=== PATIENT | female | born 1965 ===

== ENCOUNTER 2025-04-08 09:49 | Emergency (ER) | payer OTHER, SELFPAY ==
[2025-04-08 09:56] VITALS: BP 133/73
--- NOTE | 2025-04-08 10:23 | ED.GENMED ---
History of Present Illness
General
Chief Complaint: Fall
Source: patient
Exam Limitations: none
Time Seen by Provider: 04/08/25 10:09
History of Present Illness
History of Present Illness:
See MDM
Past History
Past History
ED Past Medical History: HTN
ED Past Surgical History: Appendectomy
Social History
Tobacco: Non-smoker
Alcohol: None
Phy Exam
Physical Exam
Physical Exam:
See MDM
Course
Orders/Labs/Results
Orders:
Orders
04/08/25 10:19
Oxycodone/Acetaminophen [Percocet 5/325] 1 tablet PO NOW STA
Ribs, Left 3 View W/PA Chest CR [CR Ribs-left 3 Vw W/pa Chest] Urgent
Comment:
Reason For Exam: fall, left anterior rib pain
Vital Signs
Initial and Last Documented VS:
Initial Vital Signs
Temp Pulse Resp BP Pulse Ox
98.2 F 61 16 133/73 98
04/08/25 09:56 04/08/25 09:56 04/08/25 09:56 04/08/25 09:56 04/08/25 09:56
Last Documented Vital Signs
Temp Pulse Resp BP Pulse Ox
98.2 F 61 16 133/73 98
04/08/25 09:56 04/08/25 09:56 04/08/25 09:56 04/08/25 09:56 04/08/25 09:56
MDM/Problems Addressed
Differential Diagnosis Includes:
HPI and MDM Narrative:
60-year-old female presenting with left chest pain after a trip and fall. Patient states she tripped yesterday when she was leaning forward while fishing. She states she landed on her chest. Motrin is offering minimal relief. She complains of
left anterior chest pain along her ribs. She also complains of mid chest pain along her sternum as well. On my exam, she is well-appearing nontoxic. I do hear lung sounds in the left lateral field. She is tender with palpation of left anterior
ribs. She also has some mild tenderness along the sternum. Given the fall, will obtain x-rays. Will give dose of Percocet. She denies head injury
Physical exam
General: Well appearing and non-toxic
HEENT: protecting airway
Neck: appears supple
CV: No evidence of cyanosis
Resp: No accessory muscle use. Lungs clear
Chest: Mild tenderness to left anterior ribs without skin changes or bruising. No crepitus
Abd: Non-distended
Extremities: No deformities
Neuro: alert
Psych: Normal affect
Skin: Intact
Problems Addressed including Acute and Chronic Conditions affecting care:
1. Rib pain
Acuity: acute
Prognosis: stable
Details: Will obtain x-rays when any evidence of fracture or pneumothorax
Updates
X-ray negative for fracture or pneumothorax. Patient feels comfortable going home
Differential Diagnosis (but not limited to): Rib contusion, rib fracture, pneumothorax
Testing considered: CT head but she denies head trauma
Drug therapy (if applicable): OTC meds, please see d/c instruction regarding Rx drugs
Amount and/or Complexity of Data Reviewed
Clinical info obtained from: Patient
External data reviewed: N/A
Labs I independently reviewed (but not limited to): N/A
Radiology: X-ray independently reviewed: Rib x-ray negative for fracture or pneumothorax
Pulse Ox: not hypoxic
EKG independently reviewed: N/A
Pipe Inspector: N/A
Critical Care: N/A
Risk of Complication:
Social Determinants of health: Good social support
Discussed with other providers: N/A
Escalation of Care includes Admit/Obs: After being observed in the Emergency Department, pt stable for discharge.
Occasional wrong word or 'sound a like' substitutions may have occurred due to the inherent limitations of voice recognition software. Read the chart carefully and recognize, using context, where substitutions have occurred.
*Critical Care Note
Total Time (30-74mins, 75-104mins- exclusive of procedures): Not Applicable
ED Attending Note
-
Portions of this chart may have been created with voice recognition software.� Occasional wrong word or��sound alike� substitutions may have occurred due to the inherent limitations of voice recognition software.
Discharge Plan
Departure
Patient Disposition: Home (Routine Discharge)
Date of Disposition: 04/08/25
Time of Disposition: 11:06
Patient with high blood pressure during this ER visit?: No
Discharge Problem:
Contusion of rib on left side
Prescriptions:
New
oxycodone 5 mg tablet
5 mg PO Q8H PRN (Reason: Pain) Qty: 10 0RF
Referrals:
Albert Mancini MD [Family Provider, Internal Medicine]
Activity Restrictions/Additional Instructions:
Please return for any worsening symptoms.
You may return at any time if you have further concerns.
Please follow up with your doctor at the first available appointment, preferably this week.
You were given a prescription for narcotics. If you require this pain medicine, please take a daily [id number] stool softener to avoid constipation.
Thank you for choosing [facility].
Interventions
Interventions:
*Risk Screen - Suicide Last Done: 04/08/25 09:56
*Neglect/Abuse Screening Last Done: 04/08/25 09:56
Discharge Date and Time
Print Language: Prydeinig
[2025-04-08] MEDS: PERCOCET 5/325 1 TABLET PO (10:27)
== END 2025-04-08 11:39 | disposition home or self-care (01) ==
LOC: EMR 09:49
PROVIDERS: EMERGENCY PHYSICIAN Student in an Organized Health Care Education/Training Program; FAMILY PHYSICIAN Internal Medicine
DX: S20.212A Contusion of left front wall of thorax, initial encounter (principal); W01.0XXA Fall on same level from slipping, tripping and stumbling without subsequent striking against object, initial encounter; I10 Essential (primary) hypertension; Z90.49 Acquired absence of other specified parts of digestive tract
CPT/HCPCS: 99283; 71101; 93005